=== PATIENT | male | born 1975 | race Caucasian/White ===

== ENCOUNTER 2023-07-23 09:35 | Emergency (ER) | payer MEDICAID, MEDICARE ==
[2023-07-23 10:46] LABS: INFLUENZA A NAA NEGATIVE (NEGATIVE); INFLUENZA B NAA NEGATIVE (NEGATIVE)
[2023-07-23 10:49] LABS: CORONAVIRUS COVID-19 NAA POSITIVE (NEGATIVE)
== END 2023-07-23 11:10 | disposition home or self-care (01) ==
LOC: DL.ED 09:35
DX: U07.1 COVID-19 (principal)
CPT/HCPCS: 0240U; 99282; 99283